=== PATIENT | male | born 1965 | race Two or more races ===

== ENCOUNTER 2019-12-30 13:06 | Emergency (ER) | payer OTHER ==
[~2019-12-30] VITALS: Ht 162.6 cm; Wt 73.4 kg
[2019-12-30 13:10] VITALS: BP 129/73
== END 2019-12-30 14:54 | disposition home or self-care (01) ==
LOC: ED 14:18
DX: U07.1 COVID-19 (principal)
CPT/HCPCS: 36415; 71045; 87635; 99284